=== PATIENT | male | born 1980 | race American Indian/Alaskan Native ===

== ENCOUNTER 2020-09-17 12:38 | Emergency (ER) | payer SELFPAY ==
--- NOTE | 2020-09-17 14:31 | Emergency Department Report ---
ED ENT HPI - General Chief complaint: Sore Throat Stated complaint: CHOKING IN MY SLEEP Time Seen by Provider: 09/17/20 13:23 Source: patient Mode of arrival: Ambulatory Limitations: No Limitations - History of Present Illness Initial comments: Patient is a 40-year-old male who presents to ED with his mother complaining of throat pain 7 days. Patient describes pain as throbbing in nature, 8 out of 10 intensity, nonradiating, localized to his throat. Admits pain with swallowing and eating. Patient admits no appetite due to throat pain. Patient denies nausea/vomiting/abdominal pain/shortness of breath/chest pain/headache. MD complaint: sore throat, difficulty swallowing - Related Data Previous Rx's Medication Instructions Recorded Last Taken Type Acetamin/Codeine 120-12Mg/5 ml 5 ml PO TID PRN #80 ml 09/17/20 Unknown Rx [Tylenol/Codeine] Nystas/Diphen/Xyl Visc/Mylanta 15 ml MM Q6H PRN #120 ml 09/17/20 Unknown Rx [Magic Mouthwash] predniSONE [Deltasone] 40 mg PO QDAY #10 tab 09/17/20 Unknown Rx Allergies Allergy/AdvReac Type Severity Reaction Status Date / Time No Known Allergies Allergy Unverified 09/17/20 15:50 ED Dental HPI - General Chief complaint: Sore Throat Stated complaint: CHOKING IN MY SLEEP Time Seen by Provider: 09/17/20 13:23 Source: patient Mode of arrival: Ambulatory Limitations: No Limitations - Related Data Previous Rx's Medication Instructions Recorded Last Taken Type Acetamin/Codeine 120-12Mg/5 ml 5 ml PO TID PRN #80 ml 09/17/20 Unknown Rx [Tylenol/Codeine] Nystas/Diphen/Xyl Visc/Mylanta 15 ml MM Q6H PRN #120 ml 09/17/20 Unknown Rx [Magic Mouthwash] predniSONE [Deltasone] 40 mg PO QDAY #10 tab 09/17/20 Unknown Rx Allergies Allergy/AdvReac Type Severity Reaction Status Date / Time No Known Allergies Allergy Unverified 09/17/20 15:50 ED Review of Systems ROS: Stated complaint: CHOKING IN MY SLEEP Other details as noted in HPI Comment: All other systems reviewed and negative ED Past Medical Hx - Past Medical History Previous Medical History?: No - Surgical History Past Surgical History?: No - Social History Smoking Status: Current Some Day Smoker - Medications Home Medications: Home Medications Medication Instructions Recorded Confirmed Last Taken Type Acetamin/Codeine 120-12Mg/5 ml 5 ml PO TID PRN #80 ml 09/17/20 Unknown Rx [Tylenol/Codeine] Nystas/Diphen/Xyl Visc/Mylanta 15 ml MM Q6H PRN #120 ml 09/17/20 Unknown Rx [Magic Mouthwash] predniSONE [Deltasone] 40 mg PO QDAY #10 tab 09/17/20 Unknown Rx ED Physical Exam - General Limitations: No Limitations General appearance: alert, in no apparent distress - Head Head exam: Present: atraumatic, normocephalic - Eye Eye exam: Present: normal appearance - ENT ENT exam: Present: mucous membranes moist - Expanded ENT Exam Expanded Teeth exam: Present: normal inspection Throat exam: Positive: tonsillar erythema, tonsillomegaly, tonsillar exudate. Negative: R peritonsillar mass, L peritonsillar mass - Neck Neck exam: Present: normal inspection, full ROM, lymphadenopathy. Absent: tenderness - Expanded Neck Exam Expanded Neck exam: Absent: anterior neck swelling, tracheal deviation - Respiratory Respiratory exam: Present: normal lung sounds bilaterally. Absent: respiratory distress - Cardiovascular Cardiovascular Exam: Present: regular rate, normal rhythm. Absent: systolic murmur, diastolic murmur, rubs, gallop - GI/Abdominal GI/Abdominal exam: Present: soft, normal bowel sounds - Rectal Rectal exam: Present: deferred - Extremities Exam Extremities exam: Present: normal inspection - Back Exam Back exam: Present: normal inspection - Neurological Exam Neurological exam: Present: alert, oriented X3 - Psychiatric Psychiatric exam: Present: normal affect, normal mood - Skin Skin exam: Present: warm, dry, intact, normal color. Absent: rash ED Course Vital Signs 09/17/20 14:18 Temperature 99.4 F Pulse Rate 92 H Respiratory 18 Rate Blood Pressure 124/84 [Left] O2 Sat by Pulse 94 Oximetry - Reevaluation(s) Reevaluation #1: Upon reevaluation patient is speaking in clear sentences. Still spitting on spitting back. CT scan ordered and pending. Ordered IV fluids Decadron and Rocephin. 09/17/20 18:04 Reevaluation #2: Upon reevaluation at this time. Patient reports feeling better sitting consolidate better. Patient is talking on his phone to his spouse he is in no acute distress. Patient states that medication helped a lot. CT report still pending. 09/17/20 19:14 ED Medical Decision Making - Lab Data Result diagrams: 09/17/20 17:09 09/17/20 17:09 Laboratory Last Values WBC 18.9 K/mm3 (4.5-11.0) H 09/17/20 17:09 RBC 4.49 M/mm3 (3.65-5.03) 09/17/20 17:09 Hgb 14.5 gm/dl (11.8-15.2) 09/17/20 17:09 Hct 41.4 % (35.5-45.6) 09/17/20 17:09 MCV 92 fl (84-94) 09/17/20 17:09 MCH 32 pg (28-32) 09/17/20 17:09 MCHC 35 % (32-34) H 09/17/20 17:09 RDW 13.1 % (13.2-15.2) L 09/17/20 17:09 Plt Count 289 K/mm3 (140-440) 09/17/20 17:09 Add Manual Diff Complete 09/17/20 17:09 Total Counted 100 09/17/20 17:09 Seg Neuts % (Manual) 85.0 % (40.0-70.0) H 09/17/20 17:09 Lymphocytes % (Manual) 10.0 % (13.4-35.0) L 09/17/20 17:09 Monocytes % (Manual) 5.0 % (0.0-7.3) 09/17/20 17:09 Nucleated RBC % Not Reportable 09/17/20 17:09 Seg Neutrophils # Man 16.1 K/mm3 (1.8-7.7) H 09/17/20 17:09 Band Neutrophils # 0.0 K/mm3 09/17/20 17:09 Lymphocytes # (Manual) 1.9 K/mm3 (1.2-5.4) 09/17/20 17:09 Abs React Lymphs (Man) 0.0 K/mm3 09/17/20 17:09 Monocytes # (Manual) 0.9 K/mm3 (0.0-0.8) H 09/17/20 17:09 Eosinophils # (Manual) 0.0 K/mm3 (0.0-0.4) 09/17/20 17:09 Basophils # (Manual) 0.0 K/mm3 (0.0-0.1) 09/17/20 17:09 Metamyelocytes # 0.0 K/mm3 09/17/20 17:09 Myelocytes # 0.0 K/mm3 09/17/20 17:09 Promyelocytes # 0.0 K/mm3 09/17/20 17:09 Blast Cells # 0.0 K/mm3 09/17/20 17:09 WBC Morphology Not Reportable 09/17/20 17:09 Hypersegmented Neuts Not Reportable 09/17/20 17:09 Hyposegmented Neuts Not Reportable 09/17/20 17:09 Hypogranular Neuts Not Reportable 09/17/20 17:09 Smudge Cells Not Reportable 09/17/20 17:09 Toxic Granulation Not Reportable 09/17/20 17:09 Toxic Vacuolation Not Reportable 09/17/20 17:09 Dohle Bodies Not Reportable 09/17/20 17:09 Pelger-Huet Anomaly Not Reportable 09/17/20 17:09 Sera Rods Not Reportable 09/17/20 17:09 Platelet Estimate Consistent w auto 09/17/20 17:09 Clumped Platelets Not Reportable 09/17/20 17:09 Plt Clumps, EDTA Not Reportable 09/17/20 17:09 Large Platelets Not Reportable 09/17/20 17:09 Giant Platelets Not Reportable 09/17/20 17:09 Platelet Satelliting Not Reportable 09/17/20 17:09 Plt Morphology Comment Not Reportable 09/17/20 17:09 RBC Morphology Normal 09/17/20 17:09 Dimorphic RBCs Not Reportable 09/17/20 17:09 Polychromasia Not Reportable 09/17/20 17:09 Hypochromasia Not Reportable 09/17/20 17:09 Poikilocytosis Not Reportable 09/17/20 17:09 Anisocytosis Not Reportable 09/17/20 17:09 Microcytosis Not Reportable 09/17/20 17:09 Macrocytosis Not Reportable 09/17/20 17:09 Spherocytes Not Reportable 09/17/20 17:09 Pappenheimer Bodies Not Reportable 09/17/20 17:09 Sickle Cells Not Reportable 09/17/20 17:09 Target Cells Not Reportable 09/17/20 17:09 Tear Drop Cells Not Reportable 09/17/20 17:09 Ovalocytes Not Reportable 09/17/20 17:09 Helmet Cells Not Reportable 09/17/20 17:09 Pantoja-Cole Bodies Not Reportable 09/17/20 17:09 [place] Rings Not Reportable 09/17/20 17:09 Wilner Cells Not Reportable 09/17/20 17:09 Bite Cells Not Reportable 09/17/20 17:09 Crenated Cell Not Reportable 09/17/20 17:09 Elliptocytes Not Reportable 09/17/20 17:09 Acanthocytes (Spur) Not Reportable 09/17/20 17:09 Rouleaux Not Reportable 09/17/20 17:09 Hemoglobin C Crystals Not Reportable 09/17/20 17:09 Schistocytes Not Reportable 09/17/20 17:09 Malaria parasites Not Reportable 09/17/20 17:09 Zeeshan Bodies Not Reportable 09/17/20 17:09 Hem Pathologist Commnt No 09/17/20 17:09 Sodium 134 mmol/L (137-145) L 09/17/20 17:09 Potassium 3.0 mmol/L (3.6-5.0) L 09/17/20 17:09 Chloride 92.9 mmol/L (98-107) L 09/17/20 17:09 Carbon Dioxide 29 mmol/L (22-30) 09/17/20 17:09 Anion Gap 15 mmol/L 09/17/20 17:09 BUN 11 mg/dL (9-20) 09/17/20 17:09 Creatinine 0.8 mg/dL (0.8-1.3) 09/17/20 17:09 Estimated GFR > 60 ml/min 09/17/20 17:09 BUN/Creatinine Ratio 14 % 09/17/20 17:09 Glucose 107 mg/dL (75-100) H 09/17/20 17:09 Calcium 9.1 mg/dL (8.4-10.2) 09/17/20 17:09 Group A Strep Rapid Negative (Negative) 09/17/20 Unknown - Radiology Data Radiology results: report reviewed, image reviewed CERVICAL SPINE 2 VIEWS INDICATION / CLINICAL INFORMATION: dificulty swallowing. COMPARISON: None available. FINDINGS: VERTEBRAE: No acute fracture. No significant malalignment. DISC SPACES / FACET JOINTS:No significant abnormality. PARASPINAL SOFT TISSUES:No significant abnormality. No significant swelling. ADDITIONAL FINDINGS: Tracheal air column appears patent. Signer Name: Daryn Milan MD Signed: 09/17/2020 2:56 PM Workstation Name: [id number] Transcribed By: Dictated By: DARYN MILAN Electronically Authenticated By: DARYN MILAN Signed Date/Time: 09/17/20 0373 - Medical Decision Making 40-year-old male presents with pharyngitis. ED course: Rapid strep tests ordered rapid strep test positive Patient received lidocaine, pain meds in the ED. CT scan of the neck shows no acute process no inflammatory or abscess. Vital signs stable patient is in no acute or respiratory distress. Discussed findings with patient about the positive strep. Discussed treatment in ED with patient Discussed to take medication as prescribed. Discussed with patient follow-up with ENT as discussed. Discussed with patient follow-up with primary care physician. Patient verbally states he understands and will comply to follow-up. Patient was feeling better prior to discharge. Patient is in no acute or respiratory distress. Airway patent. Critical care attestation.: If time is entered above; I have spent that time in minutes in the direct care of this critically ill patient, excluding procedure time. ED Disposition Clinical Impression: Tonsillitis, Pharyngitis Disposition: DC-01 TO HOME OR SELFCARE Is pt being admited?: No Does the pt Need Aspirin: No Condition: Stable Instructions: Tonsillitis, Sore Throat, Pharyngitis, [id number] Additional Instructions: Make sure to follow up with the primary care physician as discussed. Take all your medications as you've been prescribed. If you have any worsening symptoms or develop new symptoms please return to ED immediately. Referrals: PRIMARY CARE, [Primary Care Provider] - 3-5 Days DIXIE GARAY MD [Referring] - 3-5 Days REGIS ZAPATA MD [Referring] - 3-5 Days Forms: Work/School Release Form(ED) Time of Disposition: 20:50
--- NOTE | 2020-09-17 15:01 | XRay Report ---
CERVICAL SPINE 2 VIEWS INDICATION / CLINICAL INFORMATION: dificulty swallowing. COMPARISON: None available. FINDINGS: VERTEBRAE: No acute fracture. No significant malalignment. DISC SPACES / FACET JOINTS:No significant abnormality. PARASPINAL SOFT TISSUES:No significant abnormality. No significant swelling. ADDITIONAL FINDINGS: Tracheal air column appears patent. Signer Name: Daryn Sadler MD Signed: 09/17/2020 2:56 PM Workstation Name: [id number]
[2020-09-17] MEDS ORDERED: LIDOCAINE VISCOUS 2% 15 ML ORAL LIQD PO ONE (16:00)
[2020-09-17] MEDS ORDERED: prednisoLONE SOD PHOSPHATE 15 MG/5 ML ORAL LIQD PO ONE (16:00)
[2020-09-17] MEDS ORDERED: ACETAMINOPEN W/CODEINE 120-12MG ORAL LIQD 5 ML PO ONE (16:00)
[2020-09-17] MEDS ORDERED: SODIUM CHLORIDE 0.9% 1000 ML 1,000 ML IV ONE (16:08)
[2020-09-17] MEDS ORDERED: dexAMETHasone 20 MG/5 ML VIAL IV ONE ×2 (16:08→19:13)
[2020-09-17 17:26] LABS: Hematocrit 41.4 % (35.5-45.6); Hemoglobin 14.5 gm/dl (11.8-15.2); Mean Corpuscular HGB Conc 35 % (32-34); Mean Corpuscular Volume 92 fl (84-94); Platelet Count 289 K/mm3 (140-440); Red Blood Count 4.49 M/mm3 (3.65-5.03); Red Cell Distribution Width 13.1 % (13.2-15.2)
[2020-09-17 17:43] LABS: BUN/Creatinine Ratio 14; Blood Urea Nitrogen 11 mg/dL (9-20); Calcium 9.1 mg/dL (8.4-10.2); Hemolysis Index 4
[2020-09-17] MEDS ORDERED: cefTRIAXone/NS 1 GM/50 ML 1 GM/50 ML BAG IV ONE (18:03)
[2020-09-17 18:04] LABS: Platelet Estimate Consistent w Auto; RBC Morphology Normal; Total Cells Counted 100
[2020-09-17 21:10] VITALS: BP 118/80
--- NOTE | 2020-09-23 16:33 | Cat Scan Report ---
CT neck w con HISTORY: difficulty swallowing COMPARISON: None. TECHNIQUE: CT of the neck is performed. All CT scans at this location are performed using CT dose red uction for ALARA by means of automated exposure control. FINDINGS: Skull Base: No significant abnormality. Nasopharynx, oropharynx, hypopharynx: No significant abnormality. No mass identified.. Tonsils: There is a large left 1.8 x 3 x 4 cm collection in the region of the palatine tonsil. Mass e ffect on the oropharynx which remains patent. Phlegmonous changes seen extending along the left poste rior lateral hypopharynx to the level of the thyroid cartilage. Airway: Remains patent. Salivary glands: No significant abnormality. Thyroid:No significant abnormality. Lymphatics: There is prominent lymphadenopathy most pronounced in the left II and III levels. For exa mple on image 54 series 2 which there is a rounded lymph node measuring approximately 1.4 cm. Vasculature: No significant abnormality. Osseous Structures: No significant abnormality Additional findings: None. IMPRESSION: 1. Large left peritonsillar abscess with significant inflammation/phlegmon extending along the left l ateral hypopharyngeal wall to the level of thyroid cartilage. Mass effect on the oropharynx but it re charley patent. Prominent lymphadenopathy is most likely reactive. Informed the doctor in the e.d. about this finding. Signer Name: Martín Chopra MD Signed: 09/23/2020 4:28 PM Workstation Name: [id number]
== END 2020-09-17 21:15 | disposition home or self-care (01) ==
LOC: ED 12:38
DX: J02.9 Acute pharyngitis, unspecified (principal); F17.200 Nicotine dependence, unspecified, uncomplicated; Z79.899 Other long term (current) drug therapy
CPT/HCPCS: 36415; 70360; 70491; 80048; 85007; 85025; 87116; 87430; 96361; 96365; 96375; 99284; J0696; J1100; J7030; Q9967; J7510